=== PATIENT | female | born 1960 | race Caucasian/White ===

== ENCOUNTER 2021-10-02 15:15 | Emergency (ER) | payer OTHER ==
[~2021-10-02] VITALS: Ht 165.1 cm; Wt 57.6 kg
[~2021-10-02 15:15] MED LIST: HYDROCODON-ACE1 EAC3 PO; MELOXICAM15 MG PO; PLAQUENIL200 MG PO; TRAMADOL HCL50 MG PO
[2021-10-02] MEDS ORDERED: VENTOLIN HFA18 GM INH (15:33)
[2021-10-02] MEDS ORDERED: PREDNISONE20 MG PO (17:54)
[2021-10-02] MEDS ORDERED: HYDROCODON-ACE1 EA10 PO (17:54)
== END 2021-10-02 18:10 | disposition home or self-care (01) ==
LOC: ED 15:15
DX: M54.12 Radiculopathy, cervical region (principal); L98.9 Disorder of the skin and subcutaneous tissue, unspecified; D72.829 Elevated white blood cell count, unspecified; Z20.822 Contact with and (suspected) exposure to COVID-19; M06.9 Rheumatoid arthritis, unspecified; M19.90 Unspecified osteoarthritis, unspecified site; F17.200 Nicotine dependence, unspecified, uncomplicated; Z88.8 Allergy status to other drugs, medicaments and biological substances; Z91.018 Allergy to other foods
CPT/HCPCS: 36415; 71045; 72040; 80053; 81001; 85025; 87502; 99285-25; C9803; U0003